=== PATIENT | male | born 1935 | race Caucasian/White ===

== ENCOUNTER → 2024-11-11 | Outpatient (CLI) | payer MEDICARE ==
--- NOTE | 2024-11-11 13:47 | CT ---
CT left knee, ISAMAR protocol. CLINICAL INDICATION: Male, 89 years old with history of M17.11 UNILATERAL PRIMARY OSTEOARTHRITIS, RIG HT KN, Knee pain COMPARISON: None TECHNIQUE: Multiple axial images are obtained through the lower extremities without use of IV contras t material. The exam was performed according to the ISAMAR protocol FINDINGS: There is moderate narrowing, mild hypertrophic spurring and moderate subchondral sclerosis and cyst f ormation in the medial compartment knee consistent with moderate osteoarthritis. The lateral joint sp tonja is well preserved. There is mild hypertrophic spurring in the patellofemoral compartment but the joint space is well-preserved. There is no acute fracture or dislocation. The hips are normal and symmetric bilaterally without fracture, dislocation or arthritic change. The ankles are normal and symmetrical without osteoarthritic change, fracture, dislocation or focal i ntraosseous abnormality. IMPRESSION: 1. Moderate osteoarthritis of the medial compartment knee. 2. Mild osteoarthritis of patellofemoral compartment. 3. No significant degenerative changes of the lateral compartment.. 4. Unremarkable hips and ankles. [facility], , 11/11/2024 1:45 PM
== END | disposition home or self-care (01) ==
LOC: RADCTMAIN 12:28
PROVIDERS: ATTEND Orthopaedic Surgery
DX: M17.11 Unilateral primary osteoarthritis, right knee (principal)

== ENCOUNTER → 2024-12-10 | Outpatient (CLI) | payer MEDICARE ==
[2024-12-10 13:39] LABS: HCT 41.3 % (39.6-50.0); HGB 13.7 g/dL (13.0-17.0); MCH 32.5 pg (27.0-32.0); MCHC 33.2 g/dL (32.0-37.0); MCV 98.1 FL (80.0-97.0); NRBC Per 100 WBC 0 X 10*3/uL (0.00-0.01); Platelet Count 177 X 10*3/uL (140-440); RBC 4.21 X 10*6/uL (4.40-5.60); RDW 12.5 % (11.5-14.5); WBC 9.27 X 10*3/uL (4.50-10.00)
[2024-12-10 13:41] LABS: ALT 35 U/L (10-49); AST 29 U/L (14-35); Albumin 4.5 g/dL (3.8-4.9); Albumin/Globulin Ratio 2.25 Ratio (1.60-3.17); Alkaline Phosphatase 94 U/L (41-126); Anion Gap 10.00 mmol/L (4.00-12.00); BUN/Creat Ratio 21.30 Ratio (12.00-20.00); Blood Urea Nitrogen 21.3 mg/dL (9.0-27.0); Calcium 9.2 mg/dL (8.7-10.3); Carbon Dioxide 25.0 mmol/L (21.6-31.8); Chloride 102 mmol/L (96-109); Globulin 2.0 g/dL (1.6-3.3); Glucose 106 mg/dL (70-110); Potassium 4.4 mmol/L (3.5-5.5); Sodium 137 mmol/L (135-145); Total Protein 6.5 g/dL (6.2-8.2)
== END | disposition home or self-care (01) ==
LOC: LABPAT 09:19
PROVIDERS: ATTEND Orthopaedic Surgery
DX: Z01.812 Encounter for preprocedural laboratory examination (principal); E11.9 Type 2 diabetes mellitus without complications; Z22.322 Carrier or suspected carrier of Methicillin resistant Staphylococcus aureus
CPT/HCPCS: 80053; 83036; 85027; 85730

== ENCOUNTER → 2024-12-12 | Outpatient (CLI) | payer MEDICARE | END | disposition home or self-care (01) | LOC: LABPAT 07:59 | PROVIDERS: ATTEND Orthopaedic Surgery | DX: Z01.818 Encounter for other preprocedural examination (principal); M17.11 Unilateral primary osteoarthritis, right knee; Z22.322 Carrier or suspected carrier of Methicillin resistant Staphylococcus aureus; E11.9 Type 2 diabetes mellitus without complications | CPT/HCPCS: 93005 ==

== ENCOUNTER → 2024-12-19 | Outpatient (CLI) | payer MEDICARE ==
[2024-12-20 02:48] LABS: INR 1.02 sec (0.93-1.11); Prothrombin Time 11.6 sec (9.9-11.9)
== END | disposition home or self-care (01) ==
LOC: LABPAT 14:44
PROVIDERS: ATTEND Orthopaedic Surgery
DX: M17.11 Unilateral primary osteoarthritis, right knee (principal); Z01.818 Encounter for other preprocedural examination
CPT/HCPCS: 85610; 87070

== ENCOUNTER 2024-12-23 07:38 | Day surgery (SDC) | payer MEDICARE ==
[~2024-12-23 07:38] MED LIST: ONDANSETRON 4 MG/2 ML VIAL IVP PRN; TRANEXAMIC 1,000 MG/100ML-NACL 1,000 MG in SALINE 1 100ML.BAG IV PRN; TRANEXAMIC 1,000 MG/100ML-NACL 1,000 MG in SALINE 1 100ML.BAG IVPB PRN
[2024-12-23] MEDS ORDERED: LIDOCAINE 1% (10MG/ML) FOR IV START INTRADERMA PRN (07:50)
[2024-12-23] MEDS ORDERED: fentaNYL (PF) 50 MCG/ML 2 ML AMP IVP PRN (07:50)
[2024-12-23] MEDS ORDERED: HYDROmorphone 0.5 MG/0.5 ML SYRINGE IVP PRN ×4 (07:50→11:09)
[2024-12-23] MEDS: LACTATED RINGERS 1,000 ML IV SCH (08:13)
[2024-12-23] MEDS: IV FLUID CONTINUATION 1,000 ML IV ONE (08:14)
[2024-12-23] MEDS: DOCUSATE 100 MG CAP PO PRN (08:24)
[2024-12-23] MEDS: oxyCODONE ER 10 MG TAB.ER.12H PO PRN (08:24)
[2024-12-23] MEDS: ACETAMINOPHEN TAB 500 MG TAB PO PRN (08:25)
[2024-12-23] MEDS: FAMOTIDINE 20 MG/2 ML VIAL IVP PRN (08:26)
[2024-12-23] MEDS: ONDANSETRON 4 MG/2 ML VIAL IVP ONE (08:26)
[2024-12-23] MEDS: KETOROLAC 15 MG/ML 1 ML VIAL IVP PRN (08:27)
[2024-12-23] MEDS: DEXAMETHASONE SOD PHOSPHATE 10 MG/ML 1 ML VIAL IV PRN (08:27)
[2024-12-23] MEDS: MIDAZOLAM 2 MG/2 ML VIAL IV PRN (08:31)
--- NOTE | 2024-12-23 08:44 | P.ANPRN ---
Procedure Note - Anesthesia - Nerve Block Performed Right iPack Single Time Out Performed: Yes Date of Procedure: 12/23/24 Procedure Start Time: :30 Procedure Stop Time: :35 Location of Patient: PreOp Indication: Acute Post-Operative Pain, Analgesia, Requested by Surgeon Sedation Type: Sedate with meaningful contact maintained Preparation: Sterile Prep Position: Left Lateral Catheter: None Needle Types: Pajunk Needle Gauge: 21 Ultrasound used to visualize needle placement: Yes Ultrasound used to observe medication spread: Yes Injectate: 0.5% Ropivacaine (see comment for volume) ([id number]) Blood Aspirated: No Pain Paresthesia on Injection Noted: No Resistance on Injection: Normal Image Stored and Saved: Yes Events: Uneventful and Well Tolerated
--- NOTE | 2024-12-23 08:46 | P.ANPRN ---
Procedure Note - Anesthesia - Nerve Block Performed Right Adductor Canal Single Time Out Performed: Yes Date of Procedure: 12/23/24 Procedure Start Time: :35 Procedure Stop Time: :40 Location of Patient: PreOp Indication: Acute Post-Operative Pain, Analgesia, Requested by Surgeon Sedation Type: Sedate with meaningful contact maintained Preparation: Sterile Prep Position: Supine Catheter: None Needle Types: Pajunk Needle Gauge: 21 Ultrasound used to visualize needle placement: Yes Ultrasound used to observe medication spread: Yes Injectate: 0.5% Ropivacaine (see comment for volume) ([id number]) Blood Aspirated: No Pain Paresthesia on Injection Noted: No Resistance on Injection: Normal Image Stored and Saved: Yes Events: Uneventful and Well Tolerated
[2024-12-23] MEDS ORDERED: ePHEDrine 50 MG/ML 1 ML VIAL ONE (09:27)
[2024-12-23] MEDS ORDERED: DEXAMETHASONE SOD PHOSPHATE 4 MG/ML 1 ML VIAL ONE (09:27)
[2024-12-23] MEDS ORDERED: SUCCINYLCHOLINE CHLORIDE 200 MG/10 ML VIAL IV ONE (09:27)
[2024-12-23] MEDS ORDERED: ROPIVACAINE 5 MG/ML 30 ML VIAL ONE (09:27)
[2024-12-23] MEDS ORDERED: TRANEXAMIC 1,000 MG/100ML-NACL PREMIX BAG ONE (09:27)
[2024-12-23] MEDS ORDERED: KETAMINE HCL IN 0.9 % NACL 50 MG/5 ML SYRINGE ONE (09:27)
[2024-12-23] MEDS ORDERED: PROPOFOL 10 MG/ML 20 ML VIAL IV ONE (09:27)
[2024-12-23] MEDS ORDERED: LIDOCAINE 1% INJ 10MG/ML (20 ML MDV) ONE (09:27)
[2024-12-23] MEDS ORDERED: fentaNYL (PF) 50 MCG/ML 2 ML AMP ONE (09:27)
[2024-12-23] MEDS ORDERED: PHENYLEPHRINE 10 MG/ML VIAL ONE (09:27)
[2024-12-23] MEDS: ROPIVACAINE/EPI/CLONIDINE/KET 50 ML SYRINGE MISCELLANE PRN (10:03)
[2024-12-23] MEDS: LACTATED RINGERS 1,000 ML IV ONE (10:45)
[2024-12-23] MEDS ORDERED: NA PHOS,M-B/NA PHOS,DI-BA 133 ML ENEMA RECTAL PRN (11:09)
[2024-12-23] MEDS ORDERED: NALOXONE 0.4 MG/ML 1 ML VIAL IV PRN (11:09)
[2024-12-23] MEDS ORDERED: MAGNESIUM HYDROXIDE 2,400 MG/30 ML CUP PO PRN (11:09)
[2024-12-23] MEDS ORDERED: ONDANSETRON 4 MG/2 ML VIAL IVP PRN (11:09)
[2024-12-23] MEDS ORDERED: HYDROcodone/APAP 10-325MG 1 EACH TAB PO PRN (11:09)
[2024-12-23] MEDS ORDERED: TEMAZEPAM 15 MG CAP PO PRN ×2 (11:09→22:00)
--- NOTE | 2024-12-23 11:09 | P.OP ---
Date of Procedure: 12/23/24 Preoperative Diagnosis: Severe right knee arthritis Postoperative Diagnosis: Same Procedure(s) Performed: 1. Right total knee arthroplasty 2. Computer assisted musculoskeletal navigation using CT/MRI images Implants: 1. [place] [employer] CR Femur Size #4 2. [place] [employer] [place] Tibial Base Size #4 3. [place] [employer] CS poly Size #4, 10-mm 4. [place] Tri[employer]lon all poly patella, Size #35 Anesthesia: AURY, regional Surgeon: Christopher Delvalle Pipe Organ Tuner And Repairer #1: Shyam Griggs Estimated Blood Loss (ml): 200 IV fluids (ml): 800 Pathology: none sent Condition: stable Disposition: PACU Indications for Procedure: I met with the patient preoperatively in the office setting and discussed treatment of their symptomatic knee arthritis. They failed a long course of nonsurgical treatment and elected to proceed with an elective total knee replacement. I discussed the potential risks and complications at length and gave them ample time to ask questions. Risks discussed included: risks from anesthesia, superficial site surgical infection, acute and/or chronic periprosthetic joint infection, delayed wound healing, drainage, wound necrosis, instability, stiffness, stiffness requiring manipulation and/or revision surgery, damage to local blood vessels or nerves, aseptic loosening of the implants, extensor mechanism issues including disruption, patellar maltracking, avascular necrosis etc., continued or worsened knee pain, generalized dissatisfaction with surgical outcome, need for revision surgery, an inability to regain preinjury level of function, DVT, PE, other medical complications, and possibly loss of life or limb. The patient voiced their understanding that while these are the most common complications other less common complications are possible. They provided both their verbal and written consent to go forward with surgery. Operative Findings: Severe tri-compartmental arthritis with full-thickness cartilage loss Description of Procedure: The patient was identified in preoperative holding and the correct operative extremity was verified and marked with a marker. I reviewed the consent form with the patient at length. All of their questions were answered. The patient was given a block by anesthesia. They were then brought back to the operating room. They were transferred onto the operating room table where a general anesthetic, preoperative antibiotics, and tranexamic acid were administered by anesthesia. A tourniquet was applied to the proximal aspect of the operative extremity. The contralateral extremity was padded under the heel and secured to the operating room table with a nonsterile blue towel and tape. The ipsilateral arm was carefully draped across the patient's chest and secured with a pillow and foam. A post was applied over the lateral aspect of the ipsilateral thigh and a bolster was placed under the ipsilateral foot. I verified that the operative extremity was stable and the knee was flexed to 90. The operative extremity was then placed in a leg castorena, nonsterile drapes were applied, and the extremity was prepped and draped sterilely in the standard sterile fashion. Prior to starting surgery timeout was performed identifying the correct patient, operative extremity, and procedure. The leg was then elevated, exsanguinated with an Esmarch bandage, and the tourniquet was inflated. An anterior midline incision was made sharply with a scalpel. Once I had dissected deep to the superficial fascial layer medial and lateral flaps were elevated. A medial parapatellar arthrotomy was created. Upon opening the knee joint there were diffuse arthritic changes in all 3 compartments. The anterior horn of the medial meniscus were sharply released and a medial release was performed around the posterior medial corner of the knee to facilitate retractor placement. The fat pad was excised with electrocautery. Remnants of the ACL and PCL were then excised from the notch. 4 mm pins were then placed within the incision in the medial distal femur and proximal tibia. Arrays were applied to the pins and I verified they were completely tightened. The knee was then r egistered with the [employer] robot and manipulations in implant position were made to balance the knee and opitmize implant position. Using the Henrik robotic saw all cuts were made in accordance with our plan. After all bony fragments had been removed the cuts were verified with the planar probe. The tibia was then subluxed forward and sized. The knee was brought into flexion and a lamina automotive service cashier was placed to allow removal of the meniscal remnants both medially and laterally as well as posterior osteophytes. Local anesthetic was then infiltrated around the joint capsule. Trial implants were then placed within the knee. Range of motion and collateral ligament tension was then evaluated. Adjustments in implant size and position were then made accordingly. Once the knee was felt to be appropriately balanced the Henrik pins were removed. The patella was then cut, sized, and punched. A trial patellar button was then placed. With the trial components in place, the patella tracked midline. The femur was then drilled and the trial component removed. The trial tibial component was then appropriately rotated, pinned, and prepared for the keel. All trial components were then removed from the knee. The knee was thoroughly irrigated with pulsatile lavage. Cement was prepared via vacuum mixing in a bowl on the back table. Once the cement had reached appropriate consistency, I hand pressurized cement into the tibia and gently impacted the tibial implant into place. Cement was carefully removed from around the tibial tray and the poly liner was tapped into placed, engaging the locking mechanism. The femur was then exposed and cement was hand pressurized into the cut surfaces. The femoral implant was gently tapped into place and cement was carefully removed. A wet lap sponge was used to wipe down the bearing surface of the femur and the knee was extended to further pressurize cement. With the knee extended, cement was pressurized into the cut surface of the patella and the patella button was placed and compressed with a clamp. All extruded cement was removed including from the pin sites. The knee was held in extension until the cement had fully hardened. Once the cement had hardened the knee was evaluated one final time with the final polyethylene liner in place. The knee had full extension and flexion and felt stable to varus and valgus stress throughout the arc of motion. The tourniquet was released and with the tourniquet down the patella tracked midline. All bleeders were controlled with electrocautery. The knee was then soaked for 3 minutes with a dilute Betadine soak. The knee was thoroughly irrigated using 3 L of sterile saline and pulsatile lavage. The extensor mechanism was then reapproximated using pop off Vicryl sutures followed by a running barbed suture. The knee was then closed in layers with a 0 strata fix for the deep fascial layer, 2-0 strata fix for the superficial subcutaneous layer and Monocryl and Steri-Strips for the skin. A sterile dressing was applied. I verified that all instrument, sponge, and sharp counts were correct. The patient was then transferred off the operating room table, extubated, and brought to recovery having tolerated the procedure well. Jeanette Fishman PA-C was required as a skilled assistant finance manager due to the complexity of surgery for patient positioning, draping, exposure, retraction, closure of wound and application of dressing. PLAN: The patient can weight-bear as tolerated on the operative extremity. DVT prophylaxis with aspirin 81 mg twice a day based on preoperative risk stratification. Follow-up in the office in 2 weeks for wound check and x-rays of the knee including an AP and lateral.
--- NOTE | 2024-12-23 12:43 | XR ---
EXAMINATION TYPE: XR knee limited RT DATE OF EXAM: 12/23/2024 12:19 PM COMPARISON: None. CLINICAL INDICATION: Male, 89 years old with history of Evaluation for Postop abnormality and alignme nt, pain TECHNIQUE: 2 view(s) obtained. FINDINGS: Tibial and femoral components of the endplates. No acute fracture or dislocation evident. Soft tissue s have postsurgical change. Vascular calcification is noted. IMPRESSION: 1. No acute fractures post right knee replacement. [facility], , 12/23/2024 12:40 PM
[2024-12-23] MEDS: LABETALOL SYRINGE 5 MG/ML (4 ML SYR) IVP STA (13:07)
[2024-12-23] MEDS: SODIUM CHLORIDE 0.9% 1,000 ML IV SCH (14:33)
[2024-12-23] MEDS: DEXAMETHASONE SOD PHOSPHATE 4 MG/ML 1 ML VIAL IV ONE (14:36)
[2024-12-23] MEDS: SENNOSIDES-DOCUSATE SODIUM 1 EACH TAB PO SCH (21:08)
[2024-12-23] MEDS: ASPIRIN 81 MG PO SCH (21:08)
--- NOTE | 2024-12-24 01:04 | CONS ---
CONSULTATION REASON FOR CONSULTATION: Advice regarding rapid heart rate and hyperlipidemia, requested by orthopedist. HISTORY OF PRESENT ILLNESS: This 89-year-old gentleman with a past medical history of hyperlipidemia rapid heart rate, in the outpatient setting underwent right total knee joint arthroplasty. Postoperatively, the patient is sleepy at this time. No chest pain. No palpitations. No fever. Arousable. PAST MEDICAL HISTORY: Reviewed include hyperlipidemia, rapid heart rate. Rest of the chart is also reviewed. HOME MEDICATIONS: Reviewed include Coreg. Dose and rest of medications reviewed. ALLERGIES: None unknown. FAMILY HISTORY: No history of heart disease or strokes in the family. SOCIAL HISTORY: Remote history of smoking. REVIEW OF SYSTEMS: A 14-point review of systems is negative except as mentioned earlier. PHYSICAL EXAMINATION: VITAL SIGNS: Pulse 70, blood pressure 120/82, respirations 16. HEENT: Conjunctivae normal. NECK: No jugular venous distention. CARDIOVASCULAR: S1, S2. RESPIRATION: Breath sounds diminished at the bases. No rhonchi, no crackles. ABDOMEN: Soft, nontender. EXTREMITIES: Legs, status post surgery. NERVOUS SYSTEM: Nonfocal. LABORATORY DATA: The preop labs are reviewed, within acceptable range. ASSESSMENT: 1. Status post right total knee arthroplasty. 2. Hyperlipidemia. 3. History of rapid heart rate in the past. 4. History of degenerative joint disease. 5. History of anxiety. RECOMMENDATIONS: This 89-year-old gentleman who was presented after surgery I would recommend to resume the home medications. DVT prophylaxis. Incentive spirometry. We will follow the patient closely with you. Repeat labs may be done tomorrow and then further recommendations to follow. Recommend close followup with the primary physician. MMODL / IJN: [id number] /
[2024-12-24 07:13] VITALS: BP 103/54; PULSE 61; RESP 18; TEMP 97.5
[2024-12-24] MEDS: ATORVASTATIN 20 MG TAB PO SCH (08:30)
[2024-12-24] MEDS: HYDROcodone/APAP 5-325MG 1 EACH TAB PO PRN (08:30)
[2024-12-24] MEDS: TAMSULOSIN 0.4 MG CAP.ER.24H PO SCH (08:30)
--- NOTE | 2024-12-24 09:18 | P.DS ---
Providers Date of admission: 12/23/2024 Attending physician: Christopher Delvalle Consults: 12/23/24 11:09 Consult Physician Routine Consulting Provider: Yumi Xiong Consult Reason/Comments: post op medical management Do you want consulting provider notified?: Yes [facility] [place] [facility] Course: Admitted after elective TKA. Seen POD 1. Doing well. Motor/sensory intact. Dressing intact. Did well with PT. Cleared for d/c home. Patient Condition at Discharge: Good Plan - Discharge Summary Discharge Rx Participant: No New Discharge Prescriptions: New Omeprazole [PriLOSEC] 40 mg PO DAILY #30 cap Docusate [Colace] 100 mg PO BID #30 capsule No Action carvediloL [Coreg] 6.25 mg PO BID Alfuzosin HCl [Alfuzosin HCl ER] 10 mg PO DAILY Atorvastatin Calcium 20 mg PO DAILY Discharge Medication List Alfuzosin HCl [Alfuzosin HCl ER] 10 mg PO DAILY 12/19/24 [History] Atorvastatin Calcium 20 mg PO DAILY 12/19/24 [History] carvediloL [Coreg] 6.25 mg PO BID 12/19/24 [History] Docusate [Colace] 100 mg PO BID #30 capsule 12/23/24 [Rx] Omeprazole [PriLOSEC] 40 mg PO DAILY #30 cap 12/23/24 [Rx] Follow up Appointment(s)/Referral(s): Christopher Delvalle MD [Medical Doctor] - 2 Weeks Activity/Diet/Wound Care/Special Instructions: 1. Weight-bear as tolerated on your operative extremity unless instructed otherwise. Use a walker or other assistive device to ambulate. 2. Leave surgical dressing in place. If your dressing becomes saturated with blood, there is drainage, or the dressing becomes loose please contact the office. 3. It is okay to shower with your surgical dressing, but do not submerge in water (no hot tubs, bath's, swimming etc.) 4. Make sure to take her blood clot prevention medication as prescribed (aspirin, Eliquis, Xarelto, and Plavix are commonly prescribed medications for blood clot prevention) 5. While taking [place] or Percocet for pain make sure you're taking a stool softener (Colace) and drink lots of water. 6. Keep all follow-up appointments as scheduled. You will usually be seen in 1-2 weeks following surgery. 7. Please contact the office with any questions or concerns [phone] Discharge Disposition: HOME WITH HOME HEALTH SERVICES
[2024-12-24 09:59] LABS: Basophils # (A) 0.01 X 10*3/uL (0.00-0.10); Basophils % (A) 0.1 %; Eosinophils # (A) 0 X 10*3/uL (0.04-0.35); Eosinophils % (A) 0 %; HCT 30.2 % (39.6-50.0); HGB 10.0 g/dL (13.0-17.0); Immature Grans, Automated 0.50 %; Lymphocytes # (A) 1.27 X 10*3/uL (0.90-5.00); Lymphocytes % (A) 7.3 %; MCH 32.7 pg (27.0-32.0); MCHC 33.1 g/dL (32.0-37.0); MCV 98.7 FL (80.0-97.0); Monocytes # (A) 1.11 X 10*3/uL (0.20-1.00); Monocytes % (A) 6.4 %; NRBC Per 100 WBC 0 X 10*3/uL (0.00-0.01); Neutrophils # (A) 14.92 X 10*3/uL (1.80-7.70); Neutrophils % (A) 85.7 %; Platelet Count 160 X 10*3/uL (140-440); RBC 3.06 X 10*6/uL (4.40-5.60); RDW 12.6 % (11.5-14.5); WBC 17.40 X 10*3/uL (4.50-10.00)
--- NOTE | 2024-12-25 02:14 | PN ---
PROGRESS NOTE DATE OF SERVICE: 12/24/2024 SUBJECTIVE: This is an 89-year-old gentleman who was admitted after right total knee arthroplasty, is improving significantly. No chest pain or palpitations. No fever. White count is slightly elevated. OBJECTIVE: VITAL SIGNS: Pulse is 61, blood pressure 103/50, respirations 18. CHEST: Clear to auscultation. CARDIOVASCULAR: S1, S2. ABDOMEN: Soft. LEGS: Status post surgery. LABORATORY DATA: WBC 17.4. ASSESSMENT: 1. Status post right total knee arthroplasty. 2. Increased WBC, possibly reactive. 3. Hyperlipidemia. 4. History of rapid heart rate in the past. 5. History of degenerative joint disease. 6. History of anxiety. RECOMMENDATIONS: Recommend to continue current management and symptomatic treatment. Otherwise recommend repeat CBC with primary physician and follow up p.r.n. basis. Rest of the recommendations per Orthopedic Surgery. MMODL / IJN: [id number] /
== END 2024-12-24 11:39 | disposition home health service (06) ==
LOC: OR 07:38 → 4SSUR 11:29 → OR 12-24 11:39
PROVIDERS: ATTEND Orthopaedic Surgery
DX: M17.11 Unilateral primary osteoarthritis, right knee (principal); E78.5 Hyperlipidemia, unspecified; G89.18 Other acute postprocedural pain; Z79.899 Other long term (current) drug therapy; Z87.891 Personal history of nicotine dependence
CPT/HCPCS: 0055T; 27447; 64447; 64473; 85025